=== PATIENT | male | born 1995 | race Caucasian/White ===

== ENCOUNTER 2017-01-23 00:23 | Inpatient (IN) | payer BC ==
[~2017-01-23] VITALS: Ht 160 cm; Wt 68.0 kg
[2017-01-23 01:20] LABS: BASOPHIL % 0.4 % (0-2); PLATELET COUNT 238 x10^3mcL (130-400)
[2017-01-23 01:29] LABS: CALCIUM 8.8 mg/dL (8.5-10.1); CARBON DIOXIDE 25.4 mmol/L (21-32); CHLORIDE SERUM 103 mmol/L (98-107); CREATININE SERUM 0.6 mg/dL (0.7-1.3); GFR1 > 60 mL/min; GLUCOSE SERUM 99 mg/dL (74-106); POTASSIUM SERUM 3.4 mmol/L (3.5-5.1); SODIUM SERUM 140 mmol/L (136-145)
[2017-01-23 01:33] LABS: ALBUMIN 4.6 g/dL (3.4-5.0); ALKALINE PHOSPHATASE 56 U/L (46-116); ALT/SGPT 17 U/L (16-63); AST/SGOT 13 U/L (15-37); BILIRUBIN TOTAL 0.6 mg/dL (0.20-1.00); TOTAL PROTEIN, SERUM 7.9 g/dL (6.4-8.2)
[2017-01-23 02:31] LABS: AMPHETAMINE QUAL UR NONE DETECTED (NEG <=1000)
[2017-01-23 04:44] VITALS: BP 137/75
[2017-01-23 05:48] VITALS: BP 137/75
[2017-01-23 06:36] LABS: MAGNESIUM 2.5 mg/dL (1.8-2.4); PHOSPHOROUS 3.8 mg/dL (2.5-4.9)
[2017-01-23 06:52] LABS: T3 TOTAL 0.94 ng/mL
[2017-01-23 06:54] LABS: CHOLESTEROL/HDL RATIO 1.6
[2017-01-23 07:29] LABS: FREE T4 1.26 ng/dL (0.76-1.46); FREE THYROXINE INDEX 3.1 ug/dL (1.4-4.5); T4(THYROXINE) 8.7 ug/dL (4.7-13.3)
[2017-01-23 11:30] VITALS: Ht 160 cm; Wt 68.0 kg
[2017-01-23 14:16] LABS: microscopic required? NO
[2017-01-23 14:20] LABS: urine erythrocyte NEGATIVE (NEGATIVE)
[2017-01-23 21:46] VITALS: BP 124/55
[2017-01-24 05:52] VITALS: BP 130/61
[2017-01-24 10:08] VITALS: BP 131/61
[2017-01-24 13:42] VITALS: BP 141/77
[2017-01-24 17:33] VITALS: BP 141/77
== END 2017-01-24 19:25 | DRG 917 ==
LOC: ED 00:23 → DU 03:40
PROVIDERS: Emergency Medicine; ADMIT Family Medicine
DX: T43.3X2A Poisoning by phenothiazine antipsychotics and neuroleptics, intentional self-harm, initial encounter (principal); G92 Toxic encephalopathy; E87.6 Hypokalemia; Y92.018 Other place in single-family (private) house as the place of occurrence of the external cause; J45.909 Unspecified asthma, uncomplicated; R00.0 Tachycardia, unspecified; Z83.3 Family history of diabetes mellitus
CPT/HCPCS: 83880; 84439; G0480; J7030; Q0092

== ENCOUNTER 2017-01-26 19:48 | Emergency (ER) | payer BC ==
[2017-01-26 21:15] LABS: BASOPHIL % 0.6 % (0-2); PLATELET COUNT 263 x10^3mcL (130-400); RED CELL DISTRIBUTION WIDTH 13.3 % (11.5-14.5)
[2017-01-26 21:23] LABS: UA SPECIFIC GRAVITY 1.025 (1.005-1.035); microscopic required? YES; urine erythrocyte TRACE (NEGATIVE)
[2017-01-26 21:31] LABS: CALCIUM 8.9 mg/dL (8.5-10.1); CARBON DIOXIDE 23.7 mmol/L (21-32); CHLORIDE SERUM 104 mmol/L (98-107); CREATININE SERUM 0.9 mg/dL (0.7-1.3); GFR1 > 60 mL/min; GLUCOSE SERUM 110 mg/dL (74-106); POTASSIUM SERUM 3.3 mmol/L (3.5-5.1); SODIUM SERUM 142 mmol/L (136-145)
[2017-01-26 21:36] LABS: AMPHETAMINE QUAL UR NONE DETECTED (NEG <=1000)
[2017-01-26 21:38] LABS: ALBUMIN 4.2 g/dL (3.4-5.0); ALKALINE PHOSPHATASE 54 U/L (46-116); ALT/SGPT 18 U/L (16-63); AST/SGOT 10 U/L (15-37); BILIRUBIN TOTAL 0.6 mg/dL (0.20-1.00); TOTAL PROTEIN, SERUM 7.3 g/dL (6.4-8.2)
[2017-01-27 00:55] VITALS: BP 138/87
== END 2017-01-27 00:55 ==
LOC: ED 19:48
PROVIDERS: Emergency Medicine
DX: R41.82 Altered mental status, unspecified (principal); E87.6 Hypokalemia; J45.909 Unspecified asthma, uncomplicated; F99 Mental disorder, not otherwise specified; Z79.899 Other long term (current) drug therapy
CPT/HCPCS: 83880; C1758; J1885; J3480; J7030; Q0092